=== PATIENT | female | born 1955 | race Caucasian/White ===

== ENCOUNTER → 2017-08-02 | Outpatient (CLI) | payer OTHER ==
--- NOTE | 2017-08-02 11:46 | WWHP ---
[facility] - HISTORY AND PHYSICAL CHIEF COMPLAINT: The patient is here for her routine gynecologic exam. HPI: This is a 61-year-old, G3, P3 with an LMP of 2004. She is without gynecologic complaints and denies any postmenopausal bleeding. PAST MEDICAL HISTORY: 1. Right breast cancer 2004 and is status post mastectomy and chemotherapy. 2. History of osteopenia and she did use Fosamax for about 3 years. PAST MEDICATIONS: Calcium supplement with vitamin D daily. ALLERGIES: No known drug allergies. PAST SURGICAL HISTORY: Right breast mastectomy 2004, tubal ligation 1983, colonoscopy 2014 and this was her second one. 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 SOCIAL HISTORY: She is she denies tobacco, alcohol, and drug use. 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 FAMILY HISTORY: Unchanged from the 08/12/2015 H&P. REVIEW OF SYSTEMS: Weight has been stable. She denies respiratory, cardiac or GI problems. PHYSICAL EXAM: Blood pressure 134/79, height 5 feet 3 inches, weight 120 pounds, BMI is 21, temperature 98.1, pulse 68. This is a well-developed, well-nourished, white female, who is alert and oriented x3, in no acute distress. HEENT is within normal limits. NECK: Supple without mass or thyromegaly. CHEST AND LUNGS: Clear to auscultation. HEART: Regular rate and rhythm. BREASTS: The right breast is consistent with previous mastectomy with implant and reconstruction. There is no nipple or areola. There is no mass or tenderness of the right breast. The left breast is without mass or tenderness. Axillary exam is negative for adenopathy. BACK: Negative for CVA tenderness. ABDOMEN: Soft, nontender, without palpable masses. PELVIC EXAM: External genitalia reveals omvr-[id number]-[id number] atrophy without lesions. Cervix and vagina reveals imyu-ub-nwkpxqmr atrophy without lesions. There is no evidence of prolapse. The uterus is mid position, nongravid size and nontender. There are no palpable adnexal masses or tenderness. RECTOVAGINAL: Exam is negative for mass or tenderness and is negative for occult blood. EXTREMITIES: Nontender. IMPRESSION: 1. 61-year-old menopausal female with normal gynecologic exam. 2. History of right breast cancer status post mastectomy with reconstruction and no evidence of recurrence. PLAN: 1. Pap smear was performed. 2. Self-breast examination was discussed. 3. Breast imaging will be done through [facility], which she has done in the past and she states she will be doing this as recommended by Dr. Mcgill. 4. Osteoporosis prevention was discussed. We will plan on repeating bone density testing in the upcoming year and she will do this through Dr. Mcgill as she has done in the past. 5. She will return in 1 year. MMODL / IJN: [id number] /
== END ==
LOC: WWCWWP 09:49
PROVIDERS: ATTEND Obstetrics & Gynecology
DX: Z01.419 Encounter for gynecological examination (general) (routine) without abnormal findings (principal)

== ENCOUNTER → 2020-05-13 | Outpatient (CLI) | payer BC ==
[2020-05-13 10:47] VITALS: BP 141/93; PULSE 67; RESP 18; TEMP 97.7
--- NOTE | 2020-05-13 11:31 | P.HPOB ---
History of Present Illness H&P Date: 05/13/20 Chief Complaint: The patient is here for her routine gynecologic exam. This is a 64-year-old with an LMP of 2004. The patient is without gynecologic complaints and denies any postmenopausal bleeding. Review of Systems The patient's weight has been stable. She denies respiratory, cardiac, or GI problems. Past Medical History Past Medical History: Cancer Additional Past Medical History / Comment(s): Right breast cancer in 2004 status post mastectomy and chemotherapy. History of osteopenia and she used Fosamax for about 4 years. 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 History of Any Multi-Drug Resistant Organisms: None Reported Past Surgical History: Breast Surgery, Tubal Ligation Additional Past Surgical History / Comment(s): Right breast mastectomy 2004 with reconstruction and breast implant. Colonoscopy 2014(next after 10yr). Past Psychological History: No Psychological Hx Reported Smoking Status: Never smoker Past Alcohol Use History: None Reported Past Drug Use History: None Reported Additional History: She has been since 1975 and is sexually active. 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 - Past Family History Father Family Medical History: Diabetes Mellitus Additional Family Medical History / Comment(s): Several paternal aunts and uncles had some type of heart disease. Mother Family Medical History: No Reported History Additional Family Medical History / Comment(s): Maternal grandmother had diabetes. Medications and Allergies Home Medications Medication Instructions Recorded Confirmed Type No Known Home Medications 05/13/20 05/13/20 History Allergies Allergy/AdvReac Type Severity Reaction Status Date / Time No Known Allergies Allergy Unverified 05/13/20 10:40 Exam Vital Signs Temp Pulse Resp BP Pulse Ox 05/13/20 10:41 97.7 F 67 18 141/93 98 Intake and Output 05/12/20 05/13/20 05/13/20 22:59 06:59 14:59 Other: Weight 55.792 kg Height 5 feet 4 inches, weight 123 pounds, BMI 21.1. This is a well-developed well-nourished white female who is alert and oriented times 3 in no acute distress. HEENT: Within normal limits. NECK: Supple without mass or thyromegaly. CHEST AND LUNGS: Clear to auscultation. HEART: Regular rate and rhythm. BREASTS: Are without mass or discharge. The right breast is consistent with previous mastectomy with reconstruction and right implant. She does not have a nipple on the right side. AXILLARY EXAM: Negative for adenopathy. BACK: Negative for CVA tenderness. ABDOMEN: Soft, nontender, without palpable masses. PELVIC EXAM: Normal external genitalia with mild atrophy. Cervix and vagina appear normal mild atrophy. There is no unusual discharge. There is no evidence of prolapse. The uterus is midposition, nongravid size and nontender. There are no palpable adnexal masses or tenderness. RECTAL EXAM: Rectovaginal exam is negative for mass or tenderness and is negative for occult blood. EXTREMITIES: Nontender. IMPRESSION: 1. 64-year-old menopausal female with normal gynecologic exam. 2. History of right breast cancer in 2004 and is status post mastectomy, chemotherapy and reconstruction. There is no evidence of recurrence at this time. 3. History of osteopenia status post approximately 4 years use of Fosamax. PLAN: 1. Pap smear was performed. 2. Self breast awareness was discussed with the patient. 3. Mammogram was done in August 2019 in [place] as ordered by Dr. Sherman, her oncologist. She states this was benign. 4. Osteoporosis prevention was discussed. I have stressed the importance of adequate calcium, vitamin D and regular exercise. Recommended amounts of calcium and vitamin D were also discussed. I have recommended that she do her bone density test again since her last one was in 2014. She states she would like to do this next year. 5. We have discussed her mildly elevated blood pressure. I have recommended that she check her own blood pressure on a regular basis and she states she can do this at work. She was instructed to follow-up with her PCP for blood pressure elevations. 6. She was advised to return in one year for her annual well woman exam.
--- NOTE | 2020-05-21 14:11 | P.PN ---
Progress Note - Text Progress Note Date: 05/21/20 OUTPATIENT FOLLOW-UP NOTE TEST(S)/RESULTS: Pap smear from 05/13/2020 was negative. METHOD OF NOTIFICATION: A message with results was left on the patient's voicemail. PATIENT COMMENTS: DIAGNOSIS: Negative Pap smear DISCUSSION: She was advised to return in one year for her annual well woman exam .
== END | disposition home or self-care (01) ==
LOC: WWCWWP 10:31
PROVIDERS: ATTEND Obstetrics & Gynecology
DX: Z53.9 Procedure and treatment not carried out, unspecified reason (principal)

== ENCOUNTER → 2022-11-09 | Outpatient (CLI) | payer BC ==
[2022-11-09 14:43] VITALS: BP 126/76; PULSE 68; RESP 16; TEMP 98.6
--- NOTE | 2022-11-09 15:27 | P.HPOB ---
History of Present Illness H&P Date: 11/09/22 Chief Complaint: The patient is here for her routine gynecologic exam. This is a 66-year-old with an LMP of 2004. The patient is without gynecologic complaints and denies any postmenopausal bleeding. Review of Systems The patient's weight has been stable over the last year. She denies respiratory, cardiac, or G.I. problems. Past Medical History Past Medical History: Cancer Additional Past Medical History / Comment(s): Right breast cancer in 2004 status post mastectomy and chemotherapy. History of osteopenia and she used Fosamax for about 4 years. 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 History of Any Multi-Drug Resistant Organisms: None Reported Past Surgical History: Breast Surgery, Tubal Ligation Additional Past Surgical History / Comment(s): Right breast mastectomy 2004 with reconstruction and breast implant. Colonoscopy 2014(next after 10yr). Past Psychological History: No Psychological Hx Reported Smoking Status: Never smoker Past Alcohol Use History: None Reported Past Drug Use History: None Reported Additional History: She has been since 1975. 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 - Past Family History Father Family Medical History: Diabetes Mellitus Additional Family Medical History / Comment(s): Several paternal aunts and uncles had some type of heart disease. Mother Family Medical History: No Reported History Additional Family Medical History / Comment(s): Maternal grandmother had diabetes. Medications and Allergies Home Medications Medication Instructions Recorded Confirmed Type No Known Home Medications 05/13/20 05/13/20 History Allergies Allergy/AdvReac Type Severity Reaction Status Date / Time No Known Allergies Allergy Unverified 11/09/22 14:39 Exam Vital Signs Temp Pulse Resp BP Pulse Ox 11/09/22 14:40 98.6 F 68 16 126/76 96 Intake and Output 11/09/22 11/09/22 11/09/22 06:59 14:59 22:59 Other: Weight 55.792 kg Height 5 feet 4 inches, weight 123 pounds, BMI 21.1. This is a well-developed well-nourished white female who is alert and oriented times 3 in no acute distress. HEENT: Within normal limits. NECK: Supple without mass or thyromegaly. CHEST AND LUNGS: Clear to auscultation. HEART: Regular rate and rhythm. BREASTS: Are without mass or discharge. The right breast is consistent with previous right mastectomy with implant. The right breast is without a nipple or areola. AXILLARY EXAM: Negative for adenopathy. BACK: Negative for CVA tenderness. ABDOMEN: Soft, nontender, without palpable masses. PELVIC EXAM: Normal external genitalia with mild to moderate atrophy. Cervix and vagina appear normal with mild atrophy. There is no unusual discharge. There is no evidence of prolapse. The uterus is midposition, nongravid size and nontender. There are no palpable adnexal masses or tenderness. RECTAL EXAM: Rectovaginal exam is negative for mass or tenderness and is negative for occult blood. EXTREMITIES: Nontender. IMPRESSION: 1. 66-year-old menopausal female with normal gynecologic exam. 2. History of right breast cancer in 2004 status post mastectomy with reconstruction and chemotherapy. No evidence of recurrence on exam today. 3. History of osteopenia and is status post approximately 4 years use of Fosamax in the past. PLAN: 1. Pap smear cotest was performed. 2. Self breast awareness was discussed with the patient. We have also discussed symptoms associated with inflammatory breast cancer. 3. Left mammograms are done at [facility] and as ordered by her oncologist. Her next one will be due in December 2022. I have asked her to try to have a copy sent to me, if possible. 4. Osteoporosis prevention was discussed. I have stressed the importance of adequate calcium, vitamin D and regular exercise. Recommended amounts of calcium and vitamin D were also discussed. I have recommended bone density test and the order slip was given to the patient for this. 5. She was advised to return in one year for her annual well woman exam.
== END ==
LOC: WWCWWP 14:33
PROVIDERS: ATTEND Obstetrics & Gynecology
DX: Z01.419 Encounter for gynecological examination (general) (routine) without abnormal findings (principal); C80.1 Malignant (primary) neoplasm, unspecified; Z85.3 Personal history of malignant neoplasm of breast; Z87.39 Personal history of other diseases of the musculoskeletal system and connective tissue

== ENCOUNTER → 2022-11-16 | Outpatient (CLI) | payer BC | END | disposition home or self-care (01) | LOC: RADBDWWP 16:09 | PROVIDERS: ATTEND Obstetrics & Gynecology | DX: Z53.9 Procedure and treatment not carried out, unspecified reason (principal) ==

== ENCOUNTER → 2022-11-18 | Outpatient (CLI) | payer BC ==
--- NOTE | 2022-11-23 13:33 | BD ---
EXAMINATION TYPE: Axial Bone Density DATE OF EXAM: 11/18/2022 CLINICAL HISTORY: 66 years old Female. ICD-10 CODE: Z78.0 ASYMPTOMATIC MENOPAUSAL STATE Height: 63 Weight: 119 FRAX RISK QUESTIONS: nothing to note here RISK FACTORS HISTORY OF: Postmenopausal woman: yes, at 49 yrs old no hormones, only bone density regimine for about 6mos 16 ys ago, hx of rt breast ca 16 yrs ago, with chemo Hyperparathyroidism: no Adrenal Insufficiency: no MEDICATIONS: Additional Medications: chemo with breast ca in the past, statin for cholesterol, vit d, Additional History: hx of rt breast cancer with chemo, cholesterol EXAM MEASUREMENTS: Bone mineral densitometry was performed using the [employer]. Bone mineral density as measured about the Lumbar spine is: ----- L1-L4(G/cm2): 0.995 T Score Values are as follows: ----- L1: -0.6 ----- L2: -1.7 ----- L3: -1.8 ----- L4: -1.9 ----- L1-L4: -1.5 Z Score Values are as follows: ----- L1: 1.3 ----- L2: 0.2 ----- L3: 0.1 ----- L4: 0.0 ----- L1-L4: 0.4 Bone mineral density has: Decreased -5.1% since study of: 03.12.2015 Bone mineral density about the R hip (g/cm2): 0.792 Bone mineral density about the L hip (g/cm2): 0.724 T Score values are as follows: -----R Neck: -2.2 -----L Neck: -2.5 -----R Total: -1.7 -----L Total: -2.3 Z Score values are as follows: -----R Neck: -0.6 -----L Neck: -0.8 -----R Total: -0.3 -----L Total: -0.8 Bone mineral density has: Decreased -6.0% since study of: 03.12.2015 FRAX%s: The graph provided illustrates a 12.2%% chance for a major osteoporotic fx and a 2.8%% chance for the hips probability for fx in 10 years time. IMPRESSION: Osteopenia (T Score between -2.5 and -1). There is slightly increased risk of fracture and the patient may be considered for treatment. Re-Screen 2-5 years. NOTE: T-SCORE=SD OF THE YOUNG ADULT MEAN.
== END | disposition home or self-care (01) ==
LOC: RADBDWWP 07:23
PROVIDERS: ATTEND Obstetrics & Gynecology
DX: M81.0 Age-related osteoporosis without current pathological fracture (principal); M85.89 Other specified disorders of bone density and structure, multiple sites; Z78.0 Asymptomatic menopausal state
CPT/HCPCS: 77080